=== PATIENT | female | born 1965 | race American Indian/Alaskan Native ===

== ENCOUNTER 2021-02-05 06:40 | Day surgery (SDC) | payer MEDICARE ==
[2021-02-05] MEDS ORDERED: SODIUM CHLORIDE 0.9% 1000 ML 1,000 ML IV SCH (07:00)
--- NOTE | 2021-02-05 07:24 | Anesthesia Day of Surgery ---
Anesthesia Day of Surgery - Day of Surgery Patient Examined: Yes Patient H&P Reviewed: Yes Patient is NPO: Yes
--- NOTE | 2021-02-05 07:24 | Anesthesia Consultation ---
Anesthesia Consult and Med Hx Date of service: 02/05/21 - Airway Anesthetic Teeth Evaluation: Good (some missing teeth) ROM Head & Neck: Adequate Mental/Hyoid Distance: Adequate Mallampati Class: Class II Intubation Access Assessment: Probably Good - Pre-Operative Health Status ASA Pre-Surgery Classification: ASA3 Proposed Anesthetic Plan: MAC - Cardiovascular System Hx Hypertension: Yes Hx Peripheral Vascular Disease: Yes (h/o DVT, PE (2003, 2007)) - Endocrine Hx Non-Insulin Dependent Diabetes: Yes - Other Systems Hx Obesity: Yes (BMI 37.0)
[2021-02-05] MEDS ORDERED: LIDOCAINE MPF (2%) 20 MG/1 ML VIAL 5 ML ONE (07:41)
[2021-02-05] MEDS ORDERED: propofoL 200 MG/20 ML VIAL IV ONE ×2 (07:41→08:02)
--- NOTE | 2021-02-05 08:37 | Discharge Summary ---
Providers - Providers Date of Admission: 02/05/2021 Date of discharge: 02/05/21 Attending physician: VIKTORIA ELENA MD Primary care physician: DANA ABEL Hospitalization Reason for admission: s/p pre-op egd for bariatric surgery Procedures: egd with bx Hospital course: Pt presented for a pre-op EGD as part of planning for up coming bariatric surgery. Procedure was uneventful and pt recovered well and was discharged to home. Disposition: 01 HOME / SELF CARE / HOMELESS Final Discharge Diagnosis (Prints w/discharge instructions): morbid obesity, gerd Core Measure Documentation - Palliative Care Palliative Care/ Comfort Measures: Not Applicable - Core Measures Any of the following diagnoses?: none Exam - Physical Exam Narrative exam: unchanged from pre-op Plan Activity: advance as tolerated Diet: low carbohydrate Follow up with: DANA ABEL MD [Primary Care Provider] - 7 Days
--- NOTE | 2021-02-05 08:40 | Operative Report ---
Operative Report Operative Report: DATE: 02/05/2021 SURGERY: Upper endoscopy. SURGEON: Eugenia Orta M.D. PROCEDURE: EGD with biopsy PRE OP DX: morbid obesity, GERD POST OP DX: morbid obesity, GERD TYPE OF ANESTHESIA: MAC. ESTIMATED BLOOD LOSS: None. COMPLICATIONS: None. SPECIMENS REMOVED: antral biopsy FINDINGS: 1. food bolus 2. mild gastritis 3. small hiatal hernia INDICATIONS:INDICATION FOR PROCEDURE: Patient is a 55-year-old female with a long history of morbid obesity. She is planned to have a weight loss procedure and is here for preoperative planning EGD. PROCEDURE DETAILS: After consent was reviewed, patient was taken back to the operating room where patient was placed in the left lateral decubitus position and a bite block was placed in the mouth. After a time-out was called, MAC anesthesia was initiated. I then passed the endoscope into her oropharynx, into her esophagus, visualized the entire esophagus, which was all within normal limits. Z-line was noted to about 35cm from incisors. I then visualized the stomach and the first portion of the duodenum. There was noted to be a partially digested food bolus which obscured a small amount of the antrum. There were no abnormalities in the visualized mucosa I could clearly appreciate except for antral gastritis. A cold forceps biopsy of the antrum was taken and will be sent to pathology to evaluate for H.pylori. I then retroflexed the scope in the stomach and visualized the hiatus and I could see a small hiatal hernia. I then desufflated the stomach and removed the endoscope. Patient tolerated procedure well and was transferred to recovery room in good and stable condition.
[2021-02-05 08:42] VITALS: BP 157/75
--- NOTE | 2021-02-05 09:10 | Post Anesthesia Evaluation ---
- Post Anesthesia Evaluation Patient Participated: Yes Airway Patent: Yes Stable Respiratory Function: Yes Nausea/Vomiting: No Temp > 96.8F: Yes Pain Manageable: Yes Adequeate Hydration: Yes Anesthesia Complications: No
== END 2021-02-05 08:45 | disposition home or self-care (01) ==
LOC: GIO 06:40
PROVIDERS: ATTEND Surgery
DX: E66.01 Morbid (severe) obesity due to excess calories (principal); K21.9 Gastro-esophageal reflux disease without esophagitis; K44.9 Diaphragmatic hernia without obstruction or gangrene; K29.50 Unspecified chronic gastritis without bleeding; K31.89 Other diseases of stomach and duodenum; I10 Essential (primary) hypertension; E11.9 Type 2 diabetes mellitus without complications; E66.9 Obesity, unspecified; I73.9 Peripheral vascular disease, unspecified; Z79.899 Other long term (current) drug therapy; Z98.890 Other specified postprocedural states
CPT/HCPCS: 43239; 82962; 88305; 88342; J2704; J7030

== ENCOUNTER 2021-02-18 08:02 | Outpatient (CLI) | payer MEDICARE ==
--- NOTE | 2021-02-18 11:04 | Fluoroscopy Report ---
BARIUM SWALLOW Indication: MORBID OBESITY. Technique: Single contrast barium technique utilized to evaluate the esophagus. FINDINGS: To begin the exam, swallowing was evaluated in the lateral position under direct fluorosco py. Swallowing was normal. No mucosal irregularity, mass, mass effect, or critical stenosis. There were no abnormal tertiary c ontractions as seen with dysmotility. No gastroesophageal reflux. IMPRESSION: Unremarkable exam. Fluoroscopic time: 1.0 minutes Number of fluoroscopic images: 54 Signer Name: Kiel Yang Jr, MD Signed: 02/18/2021 11:00 AM Workstation Name: [id number]
== END 2021-02-18 08:03 | disposition home or self-care (01) ==
LOC: FLUORO 08:02
PROVIDERS: ATTEND Surgery
DX: E66.01 Morbid (severe) obesity due to excess calories (principal)
CPT/HCPCS: 74221

== ENCOUNTER 2021-05-13 07:05 | Inpatient (IN) | payer MEDICARE ==
[2021-05-09 10:08] LABS: Hematocrit 39.6 % (30.3-42.9); Hemoglobin 12.7 gm/dl (10.1-14.3); Mean Corpuscular HGB Conc 32 % (30-34); Mean Corpuscular Volume 90 fl (79-97); Platelet Count 255 K/mm3 (140-440); Red Blood Count 4.39 M/mm3 (3.65-5.03); Red Cell Distribution Width 13.4 % (13.2-15.2)
[2021-05-09 10:58] LABS: Alanine Aminotransferase 18 units/L (7-56); Albumin 4.5 g/dL (3.9-5); Blood Urea Nitrogen 17 mg/dL (7-17); Calcium 9.5 mg/dL (8.4-10.2); Hemolysis Index 13
[2021-05-09 11:03] LABS: BUN/Creatinine Ratio 34
--- NOTE | 2021-05-09 13:47 | Anesthesia Consultation ---
Anesthesia Consult and Med Hx Date of service: 05/13/21 - Airway Anesthetic Teeth Evaluation: Chipped ROM Head & Neck: Adequate Mental/Hyoid Distance: Adequate Mallampati Class: Class II Intubation Access Assessment: Good - Pre-Operative Health Status ASA Pre-Surgery Classification: ASA3 Proposed Anesthetic Plan: General - Pulmonary Hx Smoking: No (PE x 2 2003 & 2007) Hx Sleep Apnea: No - Cardiovascular System Hx Hypertension: Yes Hx Coronary Artery Disease: No Hx Peripheral Vascular Disease: Yes (Right leg has "slow circulation") - Central Nervous System Hx Psychiatric Problems: No - Endocrine Hx Non-Insulin Dependent Diabetes: Yes (Peripheral neuropathy X 4) - Hematic Hx Anemia: No Hx Sickle Cell Disease: No - Other Systems Hx Cancer: No Hx Obesity: Yes (BMI 37.0) - Additional Comments Anesthesia Medical History Comments: Chart/clearances reviewed
[~2021-05-13 07:05] MED LIST: ACETAMINOPHEN IV 1,000 MG/100 ML BOTTLE IV NR; ENOXAPARIN 40 MG/0.4 ML INJ SUB-Q NR; GABAPENTIN 500 MG/10 ML ORAL LIQD PO NR; LACTATED RINGERS 1,000 ML IV SCH; MIDAZOLAM 2 MG/2 ML INJ IV NR; SCOPOLAMINE TRANSDERMAL PATCH 72 HR TD NR; ceFAZolin/STERILE WATER 2 GM/20 ML SYRINGE IV NR; methOCARBAMOL 1,000 MG in SODIUM CHLORIDE 0.9% 250ML 250 ML IV ONE; metroNIDAZOLE/NS 500 MG/100 ML 500 MG/100 ML BAG IV NR
[2021-05-13] MEDS ORDERED: ONDANSETRON 4 MG/2 ML INJ IV PRN ×2 (07:33→13:47)
--- NOTE | 2021-05-13 07:33 | Anesthesia Day of Surgery ---
Anesthesia Day of Surgery - Day of Surgery Patient Examined: Yes Patient H&P Reviewed: Yes Patient is NPO: Yes
[2021-05-13] MEDS ORDERED: BUPIVACAINE/PF (0.25%) 2.5 MG/ML 30 ML VIAL INFILTRATI ONE ×2 (08:22→11:31)
[2021-05-13] MEDS ORDERED: LIDOCAINE 1%/EPINEPHRINE 1:100,000 VIAL (20 ML) INFILTRATI ONE ×2 (08:22→11:31)
[2021-05-13] MEDS ORDERED: SCOPOLAMINE TRANSDERMAL PATCH 72 HR TD SCH (10:00)
[2021-05-13] MEDS ORDERED: SUGAMMADEX SODIUM 200 MG/2 ML VIAL IV ONE (10:27)
[2021-05-13] MEDS ORDERED: MAGNESIUM SULFATE 4 GM/100 ML BAG IV ONE (10:28)
[2021-05-13] MEDS ORDERED: KETAMINE/STERILE WATER 50 MG/ML SYRINGE ONE (10:35)
[2021-05-13] MEDS ORDERED: SODIUM CHLORIDE 0.9% IRRIG SOLN 2000 ML IR ONE (11:31)
[2021-05-13] MEDS ORDERED: SODIUM CHLORIDE 0.9% IRR 1,500 ML BOTTLE IR ONE (11:32)
[2021-05-13] MEDS ORDERED: LIDOCAINE MPF (2%) 20 MG/1 ML VIAL 5 ML ONE ×4 (12:02)
[2021-05-13] MEDS ORDERED: dexAMETHasone 20 MG/5 ML VIAL ONE (12:02)
[2021-05-13] MEDS ORDERED: ROCURONIUM 50 MG/5 ML INJ IV ONE ×2 (12:02)
[2021-05-13] MEDS ORDERED: ONDANSETRON 4 MG/2 ML INJ ONE (12:02)
[2021-05-13] MEDS ORDERED: KETOROLAC 30 MG/1 ML INJ ONE (12:02)
[2021-05-13] MEDS ORDERED: SODIUM CHLORIDE P/F VIAL 10 ML 10 ML ONE (12:02)
[2021-05-13] MEDS ORDERED: PHENYLEPHRINE/NS 1,000 MCG/10 ML SYRINGE (OR USE) IV ONE (12:02)
[2021-05-13] MEDS ORDERED: LACTATED RINGERS 1,000 ML ONE (13:39)
[2021-05-13] MEDS ORDERED: DEXTROSE 50% IN WATER (25GM) 50 ML SYRINGE IV PRN (13:47)
[2021-05-13] MEDS ORDERED: MORPHINE 2 MG/1 ML INJ IV PRN (13:47)
[2021-05-13] MEDS ORDERED: hydrALAZINE 20 MG/1 ML INJ IV PRN (13:47)
[2021-05-13] MEDS ORDERED: SIMETHICONE 80 MG CHEW TAB PO PRN (13:47)
[2021-05-13] MEDS ORDERED: METOCLOPRAMIDE 10 MG/2 ML INJ IV PRN (13:47)
[2021-05-13] MEDS ORDERED: DEXTROSE 10% *Hypoglycemia IV PRN (13:47)
[2021-05-13] MEDS ORDERED: hydrALAZINE 20 MG/1 ML INJ ONE (13:51)
[2021-05-13] MEDS: HYDROmorphone 1 MG/1 ML INJ IV PRN ×4 (13:52→14:25)
[2021-05-13] MEDS ORDERED: LACTATED RINGERS 1,000 ML IV SCH (14:00)
--- NOTE | 2021-05-13 14:02 | Operative Report ---
Operative Report Operative Report: DATE OF PROCEDURE: 05/13/2021 SURGEON: uEgenia Orta M.D. NIB FINISHER: Cristal Castro CSA MD PREOPERATIVE DIAGNOSIS: Morbid obesity. POSTOPERATIVE DIAGNOSES: Morbid obesity PROCEDURES PERFORMED: 1. Laparoscopic gastric bypass. 2. EGD. 3. extensive lysis of adhesions ANESTHESIA: General endotracheal tube intubation, GETA SPECIMENS: None. ESTIMATED BLOOD LOSS: Less than 20 mL. FINDINGS: Extensive adhesions from previous bile leak status post gallbladder surgery. COMPLICATIONS: None. INDICATION: Ms. Simpson is a 55-year-old female with history of morbid obesity and diabetes who is here for bariatric surgery for weight loss. She signed informed consent and expressed understanding of risks and benefits. DESCRIPTION OF PROCEDURE: Patient was brought to the OR suite, laid in supine position. Bilateral lower extremity SCDs were placed. General anesthesia was induced via successful endotracheal tube intubation. Patient's abdomen was prepped and draped in sterile fashion. A veress needle was used to insuflate the abdomen to a pressure of 15 mmHg in the left subcostal region. Using Optiview technique, a 5- mm trocar was placed into the abdominal cavity under direct vision just superior and to the left of the umbilicus. There was noted to be no gross injury to any intraabdominal structures. 12 mm in the right mid abdomen mid clavicular line and three 5-mm trocars in the right upper quadrant, epigastric areas were placed under direct visualization. At this time, the ligament of Treitz identified and followed down approximately 70 cm and the jejunum was transected. The distal segment of jejunum was then traced for approximately 80 cm and a stable [id number] jejunojejunostomy was performed. The common enterotomy was closed with 2 firings of the endoscopic stapler. The mesenteric defect was closed with running Surgidac suture. This anastomosis was found to be patent without kink, obstruction or bleeding. At this time, the patient was placed in steep reverse Trendelenburg position. There was noted to be extensive intra-abdominal adhesions from previous bile leak after a gallbladder surgery. Adhesions consented of omentum and colon to the anterior abdominal wall underside the liver and stomach. It took approximately 45 minutes to rele ase the adhesions including the stomach down to a position that could facilitate all trocar access safely. This was done with harmonic scalpel. A liver retractor was placed through the epigastric port to elevate the left lateral lobe of the liver. A small gastric pouch was formed with serial firings of the blue load on a laparoscopic stapler. The Dalton limb was then brought in an antegastric antecolic fashion and secured with 2 stay sutures to the gastric pouch. After this, the enterotomies were made with Harmonic scalpel, and a [id number] stapled gastrojejunostomy was performed with a mechanical stapler. After this, a 2-layer running closure using absorbable V-lock suture were done, the first being mucosal approximation prior to completion of the first layer. Then I passed and an EGD scope beyond the anastomosis to act as a stent. The first layer was completed, the second was then performed. After this, the EGD was retracted slightly. A bowel clamp was placed in a proximal Dalton limb. The anastomosis was submerged under saline. Via intraluminal EGD insufflation, there was noted be no bubbles in the saline indicating an airtight anastomosis. There was noted to be no obstruction or bleeding intraluminally in the pouch or the anastomosis. At this time, the scope was removed. The saline was aspirated. Vistaseal was placed over the anastomosis. All trocars were removed under direct visualization and the abdomen was then desufflated. A TAP block was performed using a total of 60 mL 0.25% Marcaine along bilateral mid axillary lines starting at the subcostal margin at the level of the umbilicus. The 12mm trocar site was closed using POD and a Garth Taisha device for fear that after surgery it become incarcerated. The skin incisions were closed with 4-0 Monocryl followed by Dermabond dressings. Patient was awoken and taken to recovery in stable condition. All counts were correct.
[2021-05-13] MEDS: ceFAZolin/NS 1 GM/50 ML 1 GM/50 ML BAG IV SCH ×2 (18:43→22:33)
[2021-05-13] MEDS: metroNIDAZOLE/NS 500 MG/100 ML 500 MG/100 ML BAG IV SCH ×2 (18:43→21:18)
[2021-05-13] MEDS: INSULIN REGULAR, HUMAN 100 UNITS/1 ML SUB-Q SCH ×2 (18:44→20:00)
[2021-05-13] MEDS: KETOROLAC 30 MG/1 ML INJ IV SCH (20:45)
[2021-05-13] MEDS: ACETAMINOPHEN IV 1,000 MG/100 ML BOTTLE IV SCH (22:34)
[2021-05-14] MEDS: HYDROmorphone 1 MG/1 ML INJ IV PRN ×2 (01:06→22:28)
[2021-05-14] MEDS: KETOROLAC 30 MG/1 ML INJ IV SCH ×5 (02:00→21:35)
[2021-05-14] MEDS: INSULIN REGULAR, HUMAN 100 UNITS/1 ML SUB-Q SCH ×3 (02:00→17:07)
[2021-05-14 05:56] LABS: Basophils % (Auto) 0.2 % (0.0-1.8); Hematocrit 38.7 % (30.3-42.9); Hemoglobin 12.3 gm/dl (10.1-14.3); Lymphocytes % (Auto) 21.9 % (13.4-35.0); Mean Corpuscular HGB Conc 32 % (30-34); Mean Corpuscular Volume 91 fl (79-97); Monocytes # (Auto) 0.6 K/mm3 (0.0-0.8); Monocytes % (Auto) 6.3 % (0.0-7.3); Platelet Count 241 K/mm3 (140-440); Red Blood Count 4.27 M/mm3 (3.65-5.03); Red Cell Distribution Width 12.8 % (13.2-15.2)
[2021-05-14] MEDS: metroNIDAZOLE/NS 500 MG/100 ML 500 MG/100 ML BAG IV SCH (06:01)
[2021-05-14] MEDS: ACETAMINOPHEN IV 1,000 MG/100 ML BOTTLE IV SCH ×3 (06:02→17:06)
[2021-05-14 06:19] LABS: Alanine Aminotransferase 28 units/L (7-56); Albumin 3.9 g/dL (3.9-5); Blood Urea Nitrogen 9 mg/dL (7-17); Calcium 8.7 mg/dL (8.4-10.2); Hemolysis Index 8
[2021-05-14 06:20] LABS: BUN/Creatinine Ratio 15
--- OUTSIDE RECORDS SUMMARY | 2021-05-14 06:35 | External Medical Summary ---
:1965 Author Organization [facility], [facility] Address [address] [place] [id number] Care Team Providers Name Role Phone You Unavailable [phone] PROBLEMS Type Condition ICD9-CM [id number]-MA Onset Condition W/U Status Risk SNOM ED Notes Code Code Dates Status Code Problem Dietary Z71.3 Active confirmed 946444452 counseling and surveillance Problem Morbid E66.01 Active confirmed 959749440 (severe) obesity due to excess calories Problem Type 2 E11.9 Active confirmed 140268952 diabetes mellitus without complications Problem Essential I10 Active confirmed 57472110 (primary) hypertension Problem Personal Z86.711 Active confirmed 680727149 history of pulmonary embolism Problem Unspecified M19.90 Active confirmed 83533728 6 osteoarthriti s, unspecified site Problem Functional K30 Active confirmed 6389787 dyspepsia ALLERGIES No Known Allergies ENCOUNTERS from 1965 to 2021-05-10 Encounter Location Date Provider Diagnosis [address] Apr, [facility] [place] [place] [address] IMMUNIZATIONS No Information SOCIAL HISTORY Sex Assigned At : Social History Observation Description Sex Assigned At Unknown REASON FOR REFERRAL from 1965 to 2021-05-10 Reason Gastric Bypass Diagnosis 1 Type 2 diabetes mellitus wit hout complications (E11.9) Diagnosis 2 Morbid (severe) obesity due to excess calories (E66.01) Diagnosis 3 Unspecified osteoarthritis, unspecified site (M19.90) Diagnosis 4 Essential (primary) hyperten [place] (I10) Diagnosis 5 Personal history of pulmonar y embolism (Z86.711) Diagnosis 6 Functional dyspepsia (K30) Diagnosis 7 Dietary counseling and surve illance (Z71.3) Diagnosis 8 Personal history of other di seases of the respiratory system (Z87.09) Diagnosis 9 Low back pain (M54.5) Referral Organization [facility] Referring Provider First Name Eugenia Referring Provider Last Name You Referring Provider Specialty Surgery Referred Provider [facility], - Referral Priority Routine VITAL SIGNS No information MEDICATIONS Medication SIG (Take, Route, Notes Start Date End Date Status Frequency, Duration) Pregabalin 100 MG 1 capsule Orally A ctive Once a day Ondansetron 4 MG 1 tablet on the Apr, A ctive tongue and allow to dissolve Orally every four hours for 30 day(s) rOPINIRole HCl 0.25 MG 1 tablet 1 to 3 Active hours before bedtime Orally Once a day for 30 day(s) Metoprolol Tartrate 25 MG 1 tablet with food Active Orally Twice a day for 30 day(s) metFORMIN HCl 1000 MG 1 tablet with a meal Active Orally Once a day for 30 day(s) glipiZIDE 10 MG 1 tablet 30 minutes Active before breakfast Orally Once a day for 30 day(s) Omeprazole 40 MG 1 capsule 30 minutes Apr, Active before morning meal Orally Once a day for 30 day(s) Losartan Potassium-HCTZ 1 tablet Orally Once Active 100-25 MG a day for 30 day(s) Lovastatin 40 MG 1 tablet with the A ctive evening meal Orally Once a day for 30 day(s) HYDROcodone-Acetaminophen 15 ml as needed Apr, Apr, Active 7.5-325 MG/15ML Orally every 6 hrs for 7 days Pioglitazone HCl 30 MG 1 tablet Orally Once Active a day for 30 day(s) Cyclobenzaprine HCl 10 MG 1 tablet at bedtime Active as needed Orally Once a day for 30 day(s) cloNIDine HCl 0.1 MG 1 tablet Orally Once Active a day for 30 day(s) traMADol HCl 50 MG 1 tablet as needed Active Orally Once a day Aspirin 81 MG 1 tablet Orally Once A ctive a day for 30 day(s) PROCEDURES No Information RESULTS No Results REASON FOR VISIT No Information MEDICAL (GENERAL) HISTORY Type Description Date Medical History diabetes Medical History htn Medical History hyperlipidemia Medical History dyspepsia Medical History arthritis Medical History hx of blood clots Medical History back pain Surgical History tubal ligation 1989 Surgical History ganglion cyst removal [id number] Surgical History lap russ 2000 Surgical History endocopic procedure to treat bile leak s /p lap 2000 russ Surgical History heel spur surgery 2003 Surgical History L rotator cuff surgery 2004 Surgical History IVC filter placed 2008 Surgical History hysterectomy 2008 Surgical History L foot surgery 2011 Surgical History L foot surgery 2013 Surgical History sweat gland cyst removal R leg 2014 Hospitalization History pulmonary embolism, blood transfusio n 2004 Hospitalization History pulmonary embolism 2008 Goals Section No Information Health Concerns No Information MEDICAL EQUIPMENT No Information MENTAL STATUS No Information FUNCTIONAL STATUS No Information ASSESSMENTS No Information PLAN OF TREATMENT Medication Medication Name Sig Start Date Stop Date Omeprazole 40 MG 1 capsule 30 minutes before Apr, morning meal Orally Once a day for 30 day(s) Ondansetron 4 MG 1 tablet on the tongue and Apr, allow to dissolve Orally every four hours for 30 day(s) HYDROcodone-Acetaminophen 15 ml as needed Orally every Apr, 2 022 Apr, 7.5-325 MG/15ML 6 hrs for 7 days Referrals Referral Date Details Gastric Bypass Next Appt Details Provider Name:Eugenia Orta, 2021-04-15 1 08:30:00 AM, [address] [facility] [place], [address], Provider Name:Eugenia Orta, 2021-04-15 1 09:30:00 AM, [address] [facility] [place], [address], Insurance Providers Payer Payer Payer Insured Patient Coverage Coverage Subscriber Morgan up Name Address Phone Name Relationship Start Date End Date Number Number to Insured Blue [phone] TAMELA CARCAMO self 2019 [id number] [facility] [phone] OTHY 9 0 Smart [facility] [place] [address]
[2021-05-14] MEDS: HYDROcodone/Acetaminophen 7.5-325MG-15ML ORAL LIQD PO PRN (06:50)
[2021-05-14] MEDS: PANTOPRAZOLE 40 MG INJ IV SCH ×2 (09:01→12:48)
[2021-05-14] MEDS: ENOXAPARIN 40 MG/0.4 ML INJ SUB-Q SCH (12:30)
--- NOTE | 2021-05-14 14:19 | Post Anesthesia Evaluation ---
- Post Anesthesia Evaluation Patient Participated: Yes Airway Patent: Yes Stable Respiratory Function: Yes Nausea/Vomiting: No Temp > 96.8F: Yes Pain Manageable: Yes Adequeate Hydration: Yes Anesthesia Complications: No Block Receding Appropriately: Not Applicable Patient on Ventilator: No
--- NOTE | 2021-05-14 15:45 | Progress Note ---
Assessment and Plan POD#1 s/p lap gastric bypass. Afebrile and stable. will keep one more night to monitor OSMAR drain. Likely discharge in am. Subjective Date of service: 05/14/21 Narrative: no acute events overnight. Pt says she is feeling good and is drinking and ambulating without difficulty. Objective Vital Signs - 12hr 05/14/21 05/14/21 05/14/21 04:00 07:00 07:39 Temperature 98.7 F 98.7 F Pulse Rate 96 H 95 H Respiratory 18 18 Rate Blood Pressure 146/80 122/57 O2 Sat by Pulse 99 99 95 Oximetry - General physical appearance well developed, no distress, no pain - Respiratory normal expansion, normal respiratory effort - Abdomen soft, other (incisions c/d/i, appropriately tender to palpation, OSMAR drain sero- sanguinous) - Labs 05/14/21 04:28 05/14/21 04:28 Diabetes panel 05/14/21 Range/Units 04:28 Sodium 139 (137-145) mmol/L Potassium 4.0 (3.6-5.0) mmol/L Chloride 103.4 (98-107) mmol/L Carbon Dioxide 23 (22-30) mmol/L BUN 9 (7-17) mg/dL Creatinine 0.6 (0.6-1.2) mg/dL Glucose 138 H (65-100) mg/dL Calcium 8.7 (8.4-10.2) mg/dL AST 23 (5-40) units/L ALT 28 (7-56) units/L Alkaline Phosphatase 53 (35-129) units/L Total Protein 6.9 (6.3-8.2) g/dL Albumin 3.9 (3.9-5) g/dL Calcium panel 05/14/21 Range/Units 04:28 Calcium 8.7 (8.4-10.2) mg/dL Albumin 3.9 (3.9-5) g/dL Pituitary panel 05/14/21 Range/Units 04:28 Sodium 139 (137-145) mmol/L Potassium 4.0 (3.6-5.0) mmol/L Chloride 103.4 (98-107) mmol/L Carbon Dioxide 23 (22-30) mmol/L BUN 9 (7-17) mg/dL Creatinine 0.6 (0.6-1.2) mg/dL Glucose 138 H (65-100) mg/dL Calcium 8.7 (8.4-10.2) mg/dL Adrenal panel 05/14/21 Range/Units 04:28 Sodium 139 (137-145) mmol/L Potassium 4.0 (3.6-5.0) mmol/L Chloride 103.4 (98-107) mmol/L Carbon Dioxide 23 (22-30) mmol/L BUN 9 (7-17) mg/dL Creatinine 0.6 (0.6-1.2) mg/dL Glucose 138 H (65-100) mg/dL Calcium 8.7 (8.4-10.2) mg/dL Total Bilirubin 0.60 (0.1-1.2) mg/dL AST 23 (5-40) units/L ALT 28 (7-56) units/L Alkaline Phosphatase 53 (35-129) units/L Total Protein 6.9 (6.3-8.2) g/dL Albumin 3.9 (3.9-5) g/dL
[2021-05-15] MEDS: INSULIN REGULAR, HUMAN 100 UNITS/1 ML SUB-Q SCH ×3 (01:10→10:33)
[2021-05-15] MEDS: KETOROLAC 30 MG/1 ML INJ IV SCH ×2 (03:18→10:39)
[2021-05-15] MEDS: HYDROcodone/Acetaminophen 7.5-325MG-15ML ORAL LIQD PO PRN (03:26)
[2021-05-15 05:10] LABS: Basophils % (Auto) 0.4 % (0.0-1.8); Eosinophils % (Auto) 0.4 % (0.0-4.3); Hemoglobin 12.6 gm/dl (10.1-14.3); Lymphocytes # (Auto) 2.9 K/mm3 (1.2-5.4); Lymphocytes % (Auto) 38.3 % (13.4-35.0); Mean Corpuscular HGB Conc 33 % (30-34); Mean Corpuscular Volume 89 fl (79-97); Monocytes # (Auto) 0.5 K/mm3 (0.0-0.8); Monocytes % (Auto) 6.4 % (0.0-7.3); Platelet Count 190 K/mm3 (140-440); Red Blood Count 4.27 M/mm3 (3.65-5.03); Red Cell Distribution Width 13.3 % (13.2-15.2)
[2021-05-15 05:18] LABS: Alanine Aminotransferase 24 units/L (7-56); Albumin 3.8 g/dL (3.9-5); Blood Urea Nitrogen 7 mg/dL (7-17); Calcium 8.4 mg/dL (8.4-10.2); Hemolysis Index 13
[2021-05-15 05:23] LABS: BUN/Creatinine Ratio 12
--- NOTE | 2021-05-15 09:22 | Discharge Summary ---
Providers - Providers Date of Admission: 05/13/21 07:05 Date of discharge: 05/15/21 Attending physician: VIKTORIA ELENA MD 05/13/21 13:47 Physical Therapy Evaluation and Treat [CONS] Routine Comment: Reason For Exam: post op bariatric surgery Primary care physician: DANA ABEL Hospitalization Reason for admission: s/p gastric bypass Condition: Good Procedures: Laparoscopic gastric bypass with lysis of adhesions Hospital course: Patient had an uneventful laparoscopic gastric bypass. Over the course of 2 days she did well remaining afebrile with stable vital signs. She maintained laboratory values that were within stable limits. Patient's pain was controlled and she was ambulating well and tolerating liquids sufficiently. Patient was discharged on postop day #2 showing no gross clinical signs of leak or bleeding. Patient to follow-up in the office in 2 days to have her drain removed. In the office in 2 weeks for her official postop visit. Patient is to advance activity as tolerated. Disposition: HOME / SELF CARE / HOMELESS Final Discharge Diagnosis (Prints w/discharge instructions): Morbid obesity, diabetes Core Measure Documentation - Palliative Care Palliative Care/ Comfort Measures: Not Applicable - Core Measures Any of the following diagnoses?: none Exam - Constitutional Vitals: Temp Pulse Resp BP Pulse Ox 98.3 F 91 H 18 153/77 99 05/15/21 07:57 05/15/21 07:57 05/15/21 07:57 05/15/21 07:57 05/15/21 07:57 General appearance: Present: no acute distress, obese - EENT Eyes: Present: PERRL. Absent: scleral icterus - Respiratory Respiratory effort: normal - Cardiovascular Heart Sounds: Present: S1 & S2. Absent: rub, click - Extremities Extremities: pulses symmetrical, No edema - Abdominal General gastrointestinal: Present: soft, other (Incisions clean dry and intact, appropriately tender palpation. OSMAR drain serosanguineous) Plan Activity: advance as tolerated Diet: clear liquids Wound: open to air, keep clean and dry, drain care as instructed Follow up with: DANA ABEL MD [Primary Care Provider] - 7 Days
[2021-05-15] MEDS: PANTOPRAZOLE 40 MG INJ IV SCH (10:45)
[2021-05-15] MEDS: ENOXAPARIN 40 MG/0.4 ML INJ SUB-Q SCH (10:45)
[2021-05-15 11:21] VITALS: BP 147/75
== END 2021-05-15 14:40 | disposition home or self-care (01) | DRG 621 ==
LOC: 3A 07:05 → 4A 14:17
PROVIDERS: ADMIT Surgery; ATTEND Surgery
PROC: 0D164ZA Bypass Stomach to Jejunum, Percutaneous Endoscopic Approach (ICD-10-PCS; principal; 2021-05-13)
PROC: 0DJ08ZZ Inspection of Upper Intestinal Tract, Via Natural or Artificial Opening Endoscopic (ICD-10-PCS; 2021-05-13)
PROC: 0DNU4ZZ Release Omentum, Percutaneous Endoscopic Approach (ICD-10-PCS; 2021-05-13)
DX: E66.01 Morbid (severe) obesity due to excess calories (principal); Z68.36 Body mass index [BMI] 36.0-36.9, adult; E11.9 Type 2 diabetes mellitus without complications
CPT/HCPCS: 36415; 80053; 82962; 85025; 85027; G0378; J3490; J7121; J7517; Q9967; C9113; J0131; J0360; J0690; J1100; J1170; J1650; J1815; J1885; J2370; J2405; J2704; J3475; J7120; U0003